=== PATIENT | female | born 1940 | race Caucasian/White ===

== ENCOUNTER 2016-09-08 06:10 | Emergency (ER) | payer MEDICARE, OTHER ==
[~2016-09-08] VITALS: Ht 160 cm; Wt 70.3 kg
[2016-09-08] MEDS ORDERED: ONDANSETRON PF 4 MG/2 ML VIAL. ONE (06:35)
[2016-09-08] MEDS ORDERED: IV NORMAL SALINE 1,000ML 1,000 ML ONE (06:35)
[2016-09-08] MEDS ORDERED: IV NORMAL SALINE 1,000ML 1,000 ML IV SCH ×2 (06:36→10:15)
[2016-09-08] MEDS ORDERED: ONDANSETRON PF 4 MG/2 ML VIAL. IV ONE (06:45)
[2016-09-08] MEDS ORDERED: FAMOTIDINE 20 MG/2 ML VIAL IVP ONE (06:45)
[2016-09-08] MEDS ORDERED: fentaNYL PF 100 MCG/2 ML VIAL IV PRN (06:45)
--- NOTE | 2016-09-08 06:49 | EKG ---
[address] [address] Test Date: 2016-09-08 Test Time: 06:21:53 Pat Name: MARCELLO BASSETT Department: Room: Gender: F Personal Care Aide: OLIVER : 1940 Requested By: EDDI BALL Order Number: [id number] Reading MD: Dima Up Measurements Intervals [place] Rate: 77 P: 34 RI: 174 QRS: 7 QRSD: 76 T: 46 QT: 378 QTc: 430 Interpretive Statements SINUS RHYTHM Electronically Signed On 09-08-2016 10:55:31 CDT by Dima Up
[2016-09-08 07:12] LABS: BASO % 0 % (0-3); EOS # 0.1 x10^3/uL (0.0-0.7); EOS % 1 % (0-3); HEMATOCRIT 35.8 % (36.0-47.0); HEMOGLOBIN 12.1 g/dL (12.0-15.5); LYMPH # 1.6 x10^3/uL (1.0-4.8); LYMPH % 12 % (24-48); MEAN CORPUSCULAR HEMOGLOBIN 26 pg (25-35); MEAN CORPUSCULAR HGB CONC 34 g/dL (31-37); MEAN CORPUSCULAR VOLUME 78 fL (79-100); MONO # 0.7 x10^3/uL (0.0-1.1); MONO % 5 % (0-9); NEUT % 82 % (31-73); PLATELET COUNT 198 x10^3/uL (140-400); RED BLOOD COUNT 4.58 x10^6/uL (3.50-5.40); RED CELL DISTRIBUTION WIDTH 15.3 % (11.5-14.5); WHITE BLOOD COUNT 13.5 x10^3/uL (4.0-11.0)
[2016-09-08 07:32] LABS: ALBUMIN 3.7 g/dL (3.4-5.0); ALBUMIN/GLOBULIN RATIO 0.9 (1.0-1.7); CALCIUM 9.7 mg/dL (8.5-10.1); CREATININE 0.7 mg/dL (0.6-1.0); GFR 81.1; POTASSIUM 3.3 mmol/L (3.5-5.1); TOTAL BILIRUBIN 1.4 mg/dL (0.2-1.0); TOTAL PROTEIN 7.8 g/dL (6.4-8.2)
[2016-09-08 07:38] LABS: BACTERIA,URINE 0 /HPF (0-FEW); BARBITURATES NEG (NEG); BENZODIAZEPINES NEG (NEG); BILIRUBIN,URINE NEG (NEG); CANNABINOIDS NEG (NEG); CLARITY,URINE CLEAR; COCAINE NEG (NEG); COLOR,URINE YELLOW; GLUCOSE,URINE NEG (NEG); METHADONE NEG (NEG); NITRITE,URINE NEG (NEG); OPIATES NEG (NEG); PHENCYCLIDINE NEG (NEG); RBC,URINE 0 /HPF (0-2); SQUAMOUS EPITHELIAL CELL,UR OCC /LPF; UROBILINOGEN,URINE 0.2 mg/dL (0.2 mg/dL); WBC,URINE RARE /HPF (0-4)
[2016-09-08 07:39] LABS: AMPHETAMINE/METHAMPHETAMINE NEG (NEG)
--- NOTE | 2016-09-08 07:49 | RAD ---
Acute abdomen series with chest, 09/08/2016: History: Nausea, diarrhea and vomiting No previous radiographs are available at this time for comparison purposes. There are gas collections in the lower mediastinum and left lower chest compatible with a large hiatal hernia. Gas is present in nondilated loops of large and small bowel in the abdomen. There are a few small scattered air-fluid level suggesting a mild ileus. No free air is seen in the abdomen. There is no evidence of organomegaly within the abdomen. A right Port-A-Cath extends into the inferior aspect of the superior vena cava. The heart is moderately enlarged. There is calcific plaquing of the aorta. The pulmonary vascularity is normal. There is mild linear atelectasis in the left base. A linear opacity projected over the right upper chest probably represents an artifact on the surface of the patient. IMPRESSION: 1. Large hiatal hernia with stomach and/or bowel extending into the lower mediastinum and left lower chest. 2. Small scattered air-fluid levels in the GI tract suggesting a mild ileus. 3. Moderate cardiomegaly
[2016-09-08] MEDS ORDERED: IOHEXOL 300 MG/ML 75 ML VIAL. IV ONE (08:15)
[2016-09-08 08:39] LABS: C REACTIVE PROTEIN 9.4 mg/L (0-3.3); MAGNESIUM 1.8 mg/dL (1.8-2.4)
--- NOTE | 2016-09-08 09:19 | RAD ---
Examination: Ultrasound abdomen limited History: History of right upper quadrant pain, elevated lipase Comparison: None available Findings: The visualized pancreas grossly appears unremarkable. The gallbladder is mildly distended. Small echogenicities identified in the gallbladder probably stones, some of which are in the neck of the gallbladder. Mild thickened appearance of the gallbladder wall measuring 3.6 mm. No ultrasonographic evidence of Paez's sign. The liver measures 13.9 cm The common bile duct measures 6.2 mm in transverse dimension The right kidney measures 10.9 x 5.4 x 4.3 cm Impression 1. Echogenicities identified within the gallbladder, some of which remain in the neck of the gallbladder likely gallstones. 2. Mild thickened appearance of the gallbladder wall with no ultrasonographic evidence of Paez's sign or pericholecystic fluid to suggest cholecystitis. Correlate clinically. 3. Minimal dilated common bile duct measuring 6.2 mm. Correlate with lab values.
[2016-09-08] MEDS ORDERED: POTASSIUM CHLORIDE 20 MEQ/15 ML ORAL LIQUID. PO ONE (09:30)
--- NOTE | 2016-09-08 09:31 | PHYS DOC ---
General Chief Complaint: NAUSEA/VOMITING/DIARRHEA Stated Complaint: N/V/D Time Seen by MD: 06:23 Source: patient, EMS Exam Limitations: no limitations Problems: History of Present Illness Initial Comments Pt is 76/F to ED via EMS c/o abdominal pain with n/v. Pt states epigastric pain with n/v began 0200 and has persisted. Pt points across entire top of abdomen c/o sharp/severe pain no worsening/ relieving factors known. ED VS: 97.3, 73, 18, 138/92, 95% RA Timing/Duration: 4-6 hours Severity: severe Modifying Factors: improves with medication Associated Symptoms: nausea/vomiting, other Allergies: Coded Allergies: No Known Drug Allergies (Unverified , 09/08/16) Past Medical History Medical History: other (hiatal hernia, HTN, Hodgkin's Lymphoma) Surgical History: no surgical history Social History Smoker: non-smoker Alcohol: none Drugs: none Review of Systems Constitutional: denies chills, denies diaphoresis, denies fever, denies malaise Respiratory: denies cough, denies shortness of breath, denies wheezing Cardiovascular: denies chest pain, denies palpitations, denies syncope Gastrointestinal: see HPI Genitourinary: denies dysuria, denies frequency, denies hematuria Musculoskeletal: denies back pain, denies joint swelling, denies neck pain Psychiatric/Neurological: denies headache, denies numbness, denies paresthesia Physical Exam General Appearance: WD/WN, moderate distress Ear, Nose, Throat: hearing grossly normal, normal ENT inspection, normal pharynx Neck: non-tender, supple Respiratory: normal breath sounds, no respiratory distress Cardiovascular: normal peripheral pulses, regular rate, rhythm Gastrointestinal: soft (ND, diffuse TTP no r/g/m, neg mcburney/paez) Rectal: deferred Back: no CVA tenderness, no vertebral tenderness Extremities: non-tender, normal inspection 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 PHYSICIAN: EDDI BALL DO REASON: n/v/d PROCEDURE: ACUTE ABDOMEN SERIES Acute abdomen series with chest, 09/08/2016: History: Nausea, diarrhea and vomiting No previous radiographs are available at this time for comparison purposes. There are gas collections in the lower mediastinum and left lower chest compatible with a large hiatal hernia. Gas is present in nondilated loops of large and small bowel in the abdomen. There are a few small scattered air-fluid level suggesting a mild ileus. No free air is seen in the abdomen. There is no evidence of organomegaly within the abdomen. A right Port-A-Cath extends into the inferior aspect of the superior vena cava. The heart is moderately enlarged. There is calcific plaquing of the aorta. The pulmonary vascularity is normal. There is mild linear atelectasis in the left base. A linear opacity projected over the right upper chest probably represents an artifact on the surface of the patient. IMPRESSION: 1. Large hiatal hernia with stomach and/or bowel extending into the lower mediastinum and left lower chest. 2. Small scattered air-fluid levels in the GI tract suggesting a mild ileus. 3. Moderate cardiomegaly DICTATED AND SIGNED BY: SB GAVIRIA MD DATE: 09/08/16740 CC: ARABELLA SHERWOOD MD; EDDI BALL DO ~ PATIENT: MARCELLO BASSETT ACCOUNT: [id number] : 1940 LOCATION: ER AGE: 76 SEX: F EXAM STATUS: REG ER ORD. PHYSICIAN: EDDI BALL DO REASON: RUQ TTP elev lipase PROCEDURE: ABDOMEN LTD Examination: Ultrasound abdomen limited History: History of right upper quadrant pain, elevated lipase Comparison: None available Findings: The visualized pancreas grossly appears unremarkable. The gallbladder is mildly distended. Small echogenicities identified in the gallbladder probably stones, some of which are in the neck of the gallbladder. Mild thickened appearance of the gallbladder wall measuring 3.6 mm. No ultrasonographic evidence of Paez's sign. The liver measures 13.9 cm The common bile duct measures 6.2 mm in transverse dimension The right kidney measures 10.9 x 5.4 x 4.3 cm Impression 1. Echogenicities identified within the gallbladder, some of which remain in the neck of the gallbladder likely gallstones. 2. Mild thickened appearance of the gallbladder wall with no ultrasonographic evidence of Paez's sign or pericholecystic fluid to suggest cholecystitis. Correlate clinically. 3. Minimal dilated common bile duct measuring 6.2 mm. Correlate with lab values. DICTATED AND SIGNED BY: KVNG LEVY MD DATE: 09/08/16913 CC: ARABELLA SHERWOOD MD; EDDI BALL DO ~ PATIENT: MARCELLO BASSETT ACCOUNT: [id number] : 1940 LOCATION: ER AGE: 76 SEX: F EXAM STATUS: REG ER ORD. PHYSICIAN: EDDI BALL DO REASON: n/v, epigastric pain, elev lipase PROCEDURE: CT ABDOMEN PELVIS WO CONTRAST Examination: CT of the abdomen pelvis without contrast History: History of nausea, vomiting, epigastric pain, elevated lipase levels Comparison: None available Technique: Axial CT images of the abdomen is performed with a contrast. Coronal and sagittal reformats were performed PQRS Compliance Statement: One or more of the following individualized dose reduction techniques were utilized for this examination: 1. Automated exposure control 2. Adjustment of the mA and/or kV according to patient size 3. Use of iterative reconstruction technique Findings: Minimal left lung base airspace opacity likely atelectasis or infiltrate. Large hiatal hernia is identified. No evidence of free air identified in the abdomen. The evaluation of the solid organs is limited lack of IV contrast. The evaluation of the bowel is limited lack of oral contrast. The visualized noncontrasted liver, spleen, adrenals grossly appears unremarkable. The gallbladder is moderately distended There is mild fat stranding identified about the of the tail of the pancreas. The small bowel is nondilated. The appendix is normal Feces and gas noted throughout the colon. Multiple sigmoid colon diverticulosis identified. No evidence of intrarenal collecting system calculi or hydronephrosis identified. Tiny 4 mm exophytic density identified in the inferior pole of the right kidney could be a hyperdense cyst or lesion. No evidence of hydronephrosis. Urinary bladder is mildly distended. The visualized uterus, adnexa grossly appears unremarkable. There is faint fat stranding identified in the mesenteric root on the right. Moderate aortic atherosclerosis. Moderate degenerative changes throughout the lumbar spine. Impression: 1. Mild inflammatory fat stranding identified about the tail of the pancreas likely pancreatitis. Correlate with lab values. 2. Moderately distended gallbladder. 4. Multiple sigmoid colon diverticulosis. 5. Minimal mesenteric fat stranding identified at the mesenteric root, nonspecific. 6. Small fat-containing umbilical hernia. Large hiatal hernia. 7. Tiny 4 mm exophytic density identified in the tip of the right kidney could be hyperdense cyst or lesion. This was not visualized on ultrasound. Follow-up examination recommended. DICTATED AND SIGNED BY: KVNG LEVY MD DATE: 09/08/16 1007 CC: ARABELLA SHERWOOD MD; LIZZYEDDI Gerber DO ~ WBC 13.5, K+ 3.3, t. bili 1.4, AST 110, ALT 76, CRP 9.4, amylase 5690, lipase 34645 I discussed pancreatitis and need for inpatient treatment, bowel rest, IV fluids , GI/possibly Gen Surg consultations. Pt refuses admission, stating that she has animals she needs to care for before she can go into the hospital. I discussed risks and benefits of staying vs leaving, pt questions answered. Benefits of staying possible early diagnosis/treatment of life threatening condition. Risks of leaving potentially include worsening of symptoms, loss of quality of life and/or . Pt reiterates desire to sign out AMA, she is AOx3 and exhibits UCAR capacity. Signed out AMA by RN. Departure Time of Disposition: 10:33 Disposition: 07 AGAINST MEDICAL ADVICE Diagnosis: Acute Pancreatitis, hypokalemia, hypovolemia, HTN Condition: GUARDED Patient Instructions: Acute Pancreatitis, [id number], Discharge Against Medical Advice Additional Instructions: Please review the patient education materials given by ED staff. As discussed you have chosen to leave AGAINST MEDICAL ADVICE. Risks and benefits of staying vs leaving have been discussed with you, potential risk of leaving AMA includes loss of quality of life and . Potential benefits of staying for further evaluation and treatment are possible early diagnosis and treatment of potentially life threatening condition. You may return at any time. Avoid eating or drinking, as this will likely cause abdominal pain and nausea/ vomitting. Follow up with Dr Gonzalez this afternoon. Return to ED with new or changing symptoms. EDDI BALL DO September 08, 2016 09:31
[2016-09-08] MEDS ORDERED: IV NORMAL SALINE 250ML 0 ML ONE (09:55)
--- NOTE | 2016-09-08 10:17 | RAD ---
Examination: CT of the abdomen pelvis without contrast History: History of nausea, vomiting, epigastric pain, elevated lipase levels Comparison: None available Technique: Axial CT images of the abdomen is performed with a contrast. Coronal and sagittal reformats were performed PQRS Compliance Statement: One or more of the following individualized dose reduction techniques were utilized for this examination: 1. Automated exposure control 2. Adjustment of the mA and/or kV according to patient size 3. Use of iterative reconstruction technique Findings: Minimal left lung base airspace opacity likely atelectasis or infiltrate. Large hiatal hernia is identified. No evidence of free air identified in the abdomen. The evaluation of the solid organs is limited lack of IV contrast. The evaluation of the bowel is limited lack of oral contrast. The visualized noncontrasted liver, spleen, adrenals grossly appears unremarkable. The gallbladder is moderately distended There is mild fat stranding identified about the of the tail of the pancreas. The small bowel is nondilated. The appendix is normal Feces and gas noted throughout the colon. Multiple sigmoid colon diverticulosis identified. No evidence of intrarenal collecting system calculi or hydronephrosis identified. Tiny 4 mm exophytic density identified in the inferior pole of the right kidney could be a hyperdense cyst or lesion. No evidence of hydronephrosis. Urinary bladder is mildly distended. The visualized uterus, adnexa grossly appears unremarkable. There is faint fat stranding identified in the mesenteric root on the right. Moderate aortic atherosclerosis. Moderate degenerative changes throughout the lumbar spine. Impression: 1. Mild inflammatory fat stranding identified about the tail of the pancreas likely pancreatitis. Correlate with lab values. 2. Moderately distended gallbladder. 4. Multiple sigmoid colon diverticulosis. 5. Minimal mesenteric fat stranding identified at the mesenteric root, nonspecific. 6. Small fat-containing umbilical hernia. Large hiatal hernia. 7. Tiny 4 mm exophytic density identified in the tip of the right kidney could be hyperdense cyst or lesion. This was not visualized on ultrasound. Follow-up examination recommended.
[2016-09-08] MEDS ORDERED: LOSARTAN 50 MG TABLET. PO ONE (10:30)
[2016-09-08] MEDS ORDERED: MECLIZINE 25 MG TABLET PO ONE (10:30)
--- NOTE | 2016-09-08 10:36 | ACF ---
Admission Criteria Forms PANCREATITIS Clinical Indications for Admission to Inpatient Care (Place 'X' for any and all applicable criteria): Admission is indicated for 1 or more of the following (1)(2)(3)(4): [ ]I. Acute pancreatitis[A] as indicated by 2 or MORE of the following: [ ]a) Abdominal pain (eg, epigastric, left upper quadrant) [ ]b) Serum amylase or serum lipase greater than 3 times the upper limit of normal [ ]c) Characteristic findings from abdominal imaging (eg, pancreatic inflammation, pancreatic necrosis, peripancreatic fluid collection)[B] [ ]II. Pancreatitis (acute or chronic ) requiring inpatient care as indicated by 1 or more of the following [ ]a) Inability to maintain oral hydration Hypoxemia [ ]b) Evidence of infection (eg, fever, peripancreatic abscess) [ ]c) Severe pain requiring acute inpatient management [ ]d) Hemodynamic instability [ ]e) Hypoxemia [ ]f) Acute renal failure [ ]g) Severe electrolyte abnormalities Extended stay beyond goal length of stay may be needed for (1)(11) [ ]a) Severe acute pancreatitis (10)(19) [ ]b) Persistent symptoms, ascites, or pleural effusion [ ]c) Abdominal compartment syndrome (10) [ ]d) Late complications [ ]e) Gallstones in gallbladder [ ]f) Acute renal failure (27) The original Rule. content created by Rule. has been revised. The portions of the content which have been revised are identified through the use of italic text or in bold,and [employer] [facility] [employer] has neither reviewed nor approved the modified material.All other unmodified content is copyright Rule.. Please see references footnoted in the original Rule. edition 2016 TWIN DOMINGO September 08, 2016 10:36
[2016-09-08 11:16] VITALS: BP 215/112
== END 2016-09-08 11:30 | disposition left against medical advice (07) ==
LOC: ER 06:10
DX: K85.90 Acute pancreatitis without necrosis or infection, unspecified (principal); E87.6 Hypokalemia; E86.1 Hypovolemia; I10 Essential (primary) hypertension; C81.90 Hodgkin lymphoma, unspecified, unspecified site
CPT/HCPCS: 36415; 74022; 74176; 76705; 80053; 80305; 80320; 81001; 82150; 82550; 83690; 83735; 84484; 85027; 85610; 85730; 86140; 93005; 96361; 96374; 96375; 99285; J2405; J3010; J8597; Q9967; S0028; 29130; G0480; G0481; J7030

== ENCOUNTER 2016-11-04 07:12 | Emergency (ER) | payer MEDICARE, OTHER ==
[~2016-11-04] VITALS: Ht 160 cm; Wt 69.4 kg
--- NOTE | 2016-11-04 07:27 | EKG ---
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
[2016-11-04] MEDS ORDERED: IV NORMAL SALINE 1,000ML 1,000 ML IV ONE ×2 (07:30→09:15)
[2016-11-04] MEDS ORDERED: fentaNYL PF 100 MCG/2 ML VIAL IV PRN (07:30)
[2016-11-04] MEDS ORDERED: ONDANSETRON PF 4 MG/2 ML VIAL. ONE (07:43)
[2016-11-04] MEDS ORDERED: PROMETHAZINE 25 MG/ML VIAL IV ONE (07:46)
[2016-11-04] MEDS ORDERED: IV NORMAL SALINE 50ML 50 ML ONE ×2 (07:46→09:29)
[2016-11-04] MEDS ORDERED: fentaNYL PF 100 MCG/2 ML VIAL IV ONE (07:50)
[2016-11-04 07:55] LABS: BASO % 0 % (0-3); EOS # 0.1 x10^3/uL (0.0-0.7); EOS % 1 % (0-3); HEMATOCRIT 35.1 % (36.0-47.0); HEMOGLOBIN 11.8 g/dL (12.0-15.5); LYMPH # 1.5 x10^3/uL (1.0-4.8); LYMPH % 11 % (24-48); MEAN CORPUSCULAR HEMOGLOBIN 27 pg (25-35); MEAN CORPUSCULAR HGB CONC 34 g/dL (31-37); MEAN CORPUSCULAR VOLUME 79 fL (79-100); MONO # 0.7 x10^3/uL (0.0-1.1); MONO % 5 % (0-9); NEUT # 11.8 x10^3uL (1.8-7.7); NEUT % 83 % (31-73); PLATELET COUNT 186 x10^3/uL (140-400); RED BLOOD COUNT 4.43 x10^6/uL (3.50-5.40); RED CELL DISTRIBUTION WIDTH 14.8 % (11.5-14.5); WHITE BLOOD COUNT 14.2 x10^3/uL (4.0-11.0)
[2016-11-04 08:03] LABS: ALBUMIN 3.5 g/dL (3.4-5.0); ALBUMIN/GLOBULIN RATIO 0.9 (1.0-1.7); C REACTIVE PROTEIN 3.3 mg/L (0-3.3); CALCIUM 8.8 mg/dL (8.5-10.1); CREATININE 0.7 mg/dL (0.6-1.0); GFR 81.1; POTASSIUM 3.4 mmol/L (3.5-5.1); TOTAL BILIRUBIN 0.9 mg/dL (0.2-1.0); TOTAL PROTEIN 7.2 g/dL (6.4-8.2)
[2016-11-04] MEDS ORDERED: PROMETHAZINE 12.5 MG in IV NORMAL SALINE 50ML 50 ML IV ONE (08:10)
[2016-11-04] MEDS ORDERED: ONDANSETRON PF 4 MG/2 ML VIAL. IV ONE (08:10)
--- NOTE | 2016-11-04 08:45 | RAD ---
Right upper quadrant abdominal ultrasound, 11/04/2016: History: Right upper quadrant pain and vomiting The gallbladder is mildly distended. It contains multiple foci of increased echogenicity with associated posterior acoustic shadowing. The appearance is that of cholelithiasis. The gallbladder figueredo are mildly thickened. The patient was reportedly tender to transducer pressure over the gallbladder. The common hepatic duct at the wisam hepatis level measures 7-8 mm. There is no evidence of a hepatic mass. The pancreas and distal common bile duct region were obscured by overlying bowel. Limited views of the right kidney show no abnormality. IMPRESSION: 1. Cholelithiasis with gallbladder distention, mild gallbladder wall thickening and a positive sonographic Paez's sign suggesting acute cholecystitis. 2. Mildly prominent common hepatic duct measuring 7-8 mm. The distal common bile duct was obscured by overlying bowel.
[2016-11-04] MEDS ORDERED: PIPERACILLIN/TAZOBACTAM 3.375 GM VIAL IV ONE (09:29)
[2016-11-04 09:32] LABS: BILIRUBIN,URINE NEG (NEG); CLARITY,URINE HAZY; COLOR,URINE YELLOW; GLUCOSE,URINE NEG (NEG)
[2016-11-04 09:33] LABS: BACTERIA,URINE 0 /HPF (0-FEW); NITRITE,URINE NEG (NEG); RBC,URINE RARE /HPF (0-2); SQUAMOUS EPITHELIAL CELL,UR OCC /LPF; UROBILINOGEN,URINE 0.2 mg/dL (0.2 mg/dL); WBC,URINE 0 /HPF (0-4)
[2016-11-04] MEDS ORDERED: PIPERACILLIN/TAZOBACTAM 3.375 GM in IV NORMAL SALINE 50ML 50 ML IV ONE (09:45)
--- NOTE | 2016-11-04 10:06 | ED.ADGEN ---
Past History Past Medical History: Cancer, Hypertension, Other Past Surgical History: No Surgical History Alcohol Use: None Drug Use: None Adult General Chief Complaint Chief Complaint Abdominal pain, nausea vomiting HPI HPI Patient is a 76-year-old female presents with epigastric pain nausea and vomiting. Symptoms began earlier this morning. Patient seen in this emergency department approximately 22 months ago for the same. At that time, the patient was diagnosed with gallstone pancreatitis and decided to leave against AMA. Patient had any visual episodes of vomiting or abdominal pain since last ED visit. She has follow-up with her PCP if currently scheduled to see a GI physician in 5 days. No fevers or chills. No other acute symptoms or complaints. Patient does not drink alcohol. Review of Systems Review of Systems ROS as per HPI. Current Medications Current Medications Current Medications Medications (Trade) Dose Ordered Sig/Delon Start Time Stop Time Status Last Admin Dose Admin Fentanyl Citrate (Fentanyl 2ml Vial) 50 mcg PRN Q1HR PRN 11/04/16 07:30 Ondansetron HCl (Zofran) 4 mg STK-MED ONCE 11/04/16 07:43 11/04/16 07:44 DC Piperacillin Sod/ Tazobactam Sod (Zosyn) 3.375 gm STK-MED ONCE 11/04/16 09:29 11/04/16 09:30 DC Piperacillin Sod/ Tazobactam Sod 3.375 gm/Sodium Chloride 50 ml @ 100 mls/hr 1X ONCE 11/04/16 09:45 11/04/16 10:14 11/04/16 09:38 100 MLS/HR Promethazine HCl (Phenergan) 25 mg STK-MED ONCE 11/04/16 07:46 11/04/16 07:47 DC Promethazine HCl 12.5 mg/Sodium Chloride 50.5 ml @ 101 mls/hr ONCE ONCE 11/04/16 08:10 11/04/16 08:39 DC 11/04/16 07:55 101 MLS/HR Sodium Chloride 50 ml @ As Directed STK-MED ONCE 11/04/16 09:29 11/04/16 09:30 DC Allergies Allergies Allergies Coded Allergies Type Severity Reaction Last Updated Verified No Known Drug Allergies 09/08/16 No Physical Exam Physical Exam Constitutional: Well developed, generally weak and acutely ill-appearing. HENT: Normocephalic, atraumatic, bilateral external ears normal, oropharynx moist, no oral exudates, nose normal. Eyes: PERRLA, EOMI, conjunctiva normal. Neck: Normal range of motion. Cardiovascular:Heart rate regular rhythm, no murmur. Lungs & Thorax: Bilateral breath sounds clear to auscultation. Abdomen: Bowel sounds normal, soft, epigastric pain, tenderness. Skin: Warm, dry. Back: No tenderness. Extremities: No tenderness. Neurologic: Alert and oriented X 3, normal motor function, normal sensory function, no focal deficits noted. Psychologic: Affect normal, judgement normal, mood normal. Current Patient Data Vital Signs Vital Signs Date Time Temp Pulse Resp B/P (MAP) Pulse Ox O2 Delivery O2 Flow Rate FiO2 11/04/16 08:29 77 20 171/76 (107) 95 Room Air 11/04/16 07:12 98.0 Lab Results Laboratory Tests Test 11/04/16 07:35 11/04/16 08:55 White Blood Count 14.2 x10^3/uL (4.0-11.0) H Red Blood Count 4.43 x10^6/uL (3.50-5.40) Hemoglobin 11.8 g/dL (12.0-15.5) L Hematocrit 35.1 % (36.0-47.0) L Mean Corpuscular Volume 79 fL (79-100) Mean Corpuscular Hemoglobin 27 pg (25-35) Mean Corpuscular Hemoglobin Concent 34 g/dL (31-37) Red Cell Distribution Width 14.8 % (11.5-14.5) H Platelet Count 186 x10^3/uL (140-400) Neutrophils (%) (Auto) 83 % (31-73) H Lymphocytes (%) (Auto) 11 % (24-48) L Monocytes (%) (Auto) 5 % (0-9) Eosinophils (%) (Auto) 1 % (0-3) Basophils (%) (Auto) 0 % (0-3) Neutrophils # (Auto) 11.8 x10^3uL (1.8-7.7) H Lymphocytes # (Auto) 1.5 x10^3/uL (1.0-4.8) Monocytes # (Auto) 0.7 x10^3/uL (0.0-1.1) Eosinophils # (Auto) 0.1 x10^3/uL (0.0-0.7) Basophils # (Auto) 0.0 x10^3/uL (0.0-0.2) Sodium Level 143 mmol/L (136-145) Potassium Level 3.4 mmol/L (3.5-5.1) L Chloride Level 106 mmol/L (98-107) Carbon Dioxide Level 28 mmol/L (21-32) Anion Gap 9 (6-14) Blood Urea Nitrogen 17 mg/dL (7-20) Creatinine 0.7 mg/dL (0.6-1.0) Estimated GFR (Cockcroft-Gault) 81.1 BUN/Creatinine Ratio 24 (6-20) H Glucose Level 153 mg/dL (70-99) H Calcium Level 8.8 mg/dL (8.5-10.1) Total Bilirubin 0.9 mg/dL (0.2-1.0) Aspartate Amino Transferase (AST) 58 U/L (15-37) H Alanine Aminotransferase (ALT) 41 U/L (14-59) Alkaline Phosphatase 102 U/L (46-116) C-Reactive Protein 3.3 mg/L (0-3.3) Total Protein 7.2 g/dL (6.4-8.2) Albumin 3.5 g/dL (3.4-5.0) Albumin/Globulin Ratio 0.9 (1.0-1.7) L Lipase 12916 U/L (73-393) H Urine Collection Type Unknown Urine Color Yellow Urine Clarity Hazy Urine pH 7.5 Urine Specific [place] 1.015 Urine Protein Neg (NEG-TRACE) Urine Glucose (UA) Neg mg/dL (NEG) Urine Ketones (Stick) Neg mg/dL (NEG) Urine Blood Neg (NEG) Urine Nitrite Neg (NEG) Urine Bilirubin Neg (NEG) Urine Urobilinogen Dipstick 0.2 mg/dL (0.2 mg/dL) Urine Leukocyte Esterase Neg (NEG) Urine RBC Rare /HPF (0-2) Urine WBC 0 /HPF (0-4) Urine Squamous Epithelial Cells Occ /LPF Urine Bacteria 0 /HPF (0-FEW) EKG EKG [EKG: NSR, rate 68, QTC 421. ] Radiology/Procedures Radiology/Procedures [US single organ: Cholelithiasis, with gallbladder wall thickening and a positive Paez's sign suggesting acute cholecystitis.] Course & Med Decision Making Course & Med Decision Making Pertinent Labs and Imaging studies reviewed. (See chart for details) Concern for gallstone pancreatitis. IV fluids, pain and nausea medications given. Patient accepted at [facility] by Dr. Reyes. ] Final Impression Final Impression [1. Abdominal pain 2. Nausea and vomiting 3. Gallstone pancreatitis] Problems: Dragon Disclaimer Dragon Disclaimer This electronic medical record was generated, in whole or in part, using a voice recognition dictation system. ROHAN ALVAREZ DO Nov 04, 2016 10:06
[2016-11-04 10:51] VITALS: BP 174/73
== END 2016-11-04 11:05 | disposition short-term general hospital (02) ==
LOC: ER 07:12
DX: K80.80 Other cholelithiasis without obstruction (principal); K85.90 Acute pancreatitis without necrosis or infection, unspecified; I10 Essential (primary) hypertension
CPT/HCPCS: 36415; 76705; 80053; 81001; 83690; 85027; 86140; 93005; 96365; 96367; 96375; 99285; J2405; J2543; J2550; J3010; J7030

== ENCOUNTER → 2018-08-29 | Outpatient (CLI) | payer MEDICARE, OTHER ==
[2017-11-26 11:58] VITALS: BP 145/82
--- NOTE | 2018-08-31 09:12 | RAD ---
DATE: 08/29/2018 EXAM: DIGITAL SCREEN BILAT W/CAD HISTORY: Routine screening COMPARISON: None available This study was interpreted with the benefit of Computerized Aided Detection (CAD). Breast Density: SCATTERED The breast parenchyma shows scattered fibroglandular densities. Breast parenchyma level B. FINDINGS: A Port-A-Cath is partially visualized projected over the axillary region on the right MLO view. There are benign-appearing lymph node type densities in the axillary regions and in the axillary tail of the left breast. No spiculated mass or architectural distortion is seen. Scattered benign type calcifications are present. No suspicious microcalcifications are evident. IMPRESSION: There is no mammographic evidence of malignancy in either breast. BI-RADS CATEGORY: 2 BENIGN FINDING(S) RECOMMENDED FOLLOW-UP: 12M 12 MONTH FOLLOW-UP PQRS compliance statement: Patient information was entered into a reminder system with a target due date for the next mammogram. Mammography is a sensitive method for finding small breast cancers, but it does not detect them all and is not a substitute for careful clinical examination. A negative mammogram does not negate a clinically suspicious finding and should not result in delay in biopsying a clinically suspicious abnormality. "Our facility is accredited by the [employer] Mammography Program."
== END | disposition home or self-care (01) ==
LOC: MAMMO 14:20
PROVIDERS: ATTEND Nurse Practitioner Family
DX: Z12.31 Encounter for screening mammogram for malignant neoplasm of breast (principal); N64.89 Other specified disorders of breast
CPT/HCPCS: 77067

== ENCOUNTER 2021-09-18 06:40 | Emergency (ER) | payer MEDICARE, OTHER ==
[~2021-09-18] VITALS: Ht 167.6 cm; Wt 60.0 kg
[2021-09-18 06:45] VITALS: BP 156/75
--- NOTE | 2021-09-18 07:01 | PHYS DOC ---
Past History Past Medical History: Cancer, Hypertension, Other Past Surgical History: Cholecystectomy Alcohol Use: None Drug Use: None Adult General Chief Complaint Chief Complaint: FACE PROBLEM HPI HPI Patient is a 81year old female who presents with complaint of left-sided facial pain and swelling. The patient states her symptoms started 5 days ago and have been rapidly worsening over the past day. The patient states that prior to onset of symptoms she had slipped and hit the left side of her head at home. She did not lose consciousness. She states that within a day after this occurred she started to have worsening swelling along the left side of her scalp. This then progressed to worsening redness and development of open sores. The patient states that she saw her primary care physician who initially thought she could have poison eryn. Reevaluation then raised suspicion of the possibility of shingles. Patient notes worsening pain and states that the swelling has almost completely closed her left eye. Denies fevers, vomiting, or shortness of breath. States that she has been having runny nose and sinus pressure as well, especially on the left side. Review of Systems Review of Systems Constitutional: Denies fever or chills [] Eyes: Left-sided eye pain, redness, and discharge [] HENT: Facial swelling, sinus pressure [] Respiratory: Denies cough or shortness of breath [] Cardiovascular: Denies chest pain or edema [] GI: Denies abdominal pain, nausea, vomiting, bloody stools or diarrhea [] : Denies dysuria or hematuria [] Musculoskeletal: Denies back pain or joint pain [] Integument: Positive for open sores, erythema, and facial swelling [] Neurologic: Denies headache, focal weakness or sensory changes [] All other systems were reviewed and found to be within normal limits, except as documented in this note. Allergies Allergies Allergies Coded Allergies Type Severity Reaction Last Updated Verified No Known Drug Allergies 09/08/16 No Physical Exam Physical Exam Constitutional: Alert, afebrile, appears in moderate discomfort. [] HENT: Moderate soft tissue swelling and erythema along the left forehead extending to the left periorbital region, healing ulcerative lesions to left forehead of varying size, no active vesicular lesions, bilateral external ears normal, oropharynx moist, no oral exudates, nose normal. [] Eyes: PERRLA, EOMI, left conjunctiva with chemosis and injection, clear exudate, significant periorbital swelling causing subtotal occlusion of left globe. [] Neck: Normal range of motion, no tenderness, supple, no stridor. [] Cardiovascular:Heart rate regular rhythm, no murmur [] Lungs & Thorax: Bilateral breath sounds clear to auscultation [] Abdomen: Bowel sounds normal, soft, no tenderness, no masses, no pulsatile masses. [] Skin: Warmth, erythema, ulcerative skin lesions present along the left forehead and left periorbital region, tender to palpation, high concern for cellulitis. [] Back: No tenderness, no CVA tenderness. [] Extremities: No tenderness, no cyanosis, no clubbing, ROM intact, no edema. [] Neurologic: Alert and oriented X 3, normal motor function, normal sensory function, no focal deficits noted. [] Current Patient Data Vital Signs Vital Signs Date Time Temp Pulse Resp B/P (MAP) Pulse Ox O2 Delivery O2 Flow Rate FiO2 09/18/21 06:45 96.5 112 20 156/75 (102) 96 Room Air Lab Results Not performed EKG EKG Not performed [] Radiology/Procedures Radiology/Procedures Not performed [] Heart Score C/O Chest Pain: No Risk Factors: Risk Factors: DM, Current or recent (<one month) smoker, HTN, HLP, family history of CAD, obesity. Risk Scores: Risk Factors: DM, Current or recent (<one month) smoker, HTN, HLP, family history of CAD, obesity. Course & Med Decision Making Course & Med Decision Making Pertinent Labs and Imaging studies reviewed. (See chart for details) The patient's clinical examination raises very high suspicion for left periorbital cellulitis. This may be secondary to either recent shingles outbreak versus allergic reaction or it could be due to a possible skin wound that became infected. The condition appears to be affecting the left eye raising high concern for threat to patient's vision. I informed the patient that this condition would require treatment with IV antibiotics and consideration of IV steroids and also possibly IV antivirals. The patient was informed of the possible risks that her condition presents to both her life and vision and that she would need to be transferred to another institution that would have capabilities of infectious disease and ophthalmology for consultation. Patient voiced understanding of all of this information, however the patient states that she cannot be admitted to the hospital at this time as she is concerned about taking care of her dogs at home prior to being admitted. The patient was informed that any further delay in her condition could result in permanent damage to her left eye and potentially increase in risk of threat to life. The patient voices understanding of this and does not wish to be transferred at this time. The patient is of sound mind and I do believe she understands the risks of her decision and has the capacity as well to make her own medical decisions. Patient signed out of the emergency department AGAINST MEDICAL ADVICE. Advised that the patient seek immediate medical help and attent ion for her current condition as she is in need of treatment as soon as possible. [] Dragon Disclaimer Dragon Disclaimer This electronic medical record was generated, in whole or in part, using a voice recognition dictation system. Departure Departure: Impression: Primary Impression: Periorbital cellulitis of left eye Disposition: LEFT AGAINST MEDICAL ADVICE Condition: STABLE Referrals: ROSS ERICKSON MD (PCP) Patient Instructions: Periorbital Cellulitis Additional Instructions: You have a serious infection on the left side of your face that needs treatment with IV antibiotics and will also likely need consultation with an risk control manager and infectious disease specialist. You have been informed that this condition would best be treated in hospital and that you need to be admitted as an inpatient for further care. Please seek help immediately for treatment as this infection could cause permanent damage to your eye or even potentially become life-threatening. NEIL ORDAZ MD September 18, 2021 07:01
== END 2021-09-18 07:10 | disposition left against medical advice (07) ==
LOC: ER 06:40
DX: L03.213 Periorbital cellulitis (principal); I10 Essential (primary) hypertension
CPT/HCPCS: 99281